=== PATIENT | male | born 1925 | race Caucasian/White ===

== ENCOUNTER 2017-02-14 09:29 | Day surgery (SDC) | payer MEDICARE, BC, MEDICAID ==
[~2017-02-14 09:29] MED LIST: ACIDOPHILUS-PE1 EAC3 PO; ANTIVERT25 MG PO; ATIVAN0.5 M1 PO; BANOPHEN25 M2 PO; BISCOLAX10 MG PR; CALCIUM CARBON500 M2 PO; CLARITIN10 M6 PO; COLCHICINE0.6 MG; CYMBALTA30 M1 PO; CYMBALTA60 M1 PO; DELTASONE10 MG PO; DILAUDID4 M1 PO; DURAGESIC1 EAC4 TOP; EXCEDRIN EXTRA1 EAC4 PO; HALOPERIDOL2 MG/1 ML PO; LORTAB 7.5/5001 TAB; MILK OF MAGNESIA PO; MOBIC15 M2 PO; MOVANTIK12.5 MG PO; MUPIROCIN15 G2 TP; NITROGLYCERIN0.4 M2 SL; OMEPRAZOLE20 M3 PO; PERIDEX118 ML SSP; POLYETHYLENE G255 G1 PO; PROTONIX40 MG; PROTONIX40 MG PO; SENNA8.6 M2 PO; TYLENOL325 M2 PO; ULORIC40 MG PO; VICOPROFEN PO
== END 2017-02-14 16:10 ==
LOC: SRG 09:29 → SHSB 09:30 → ORE 11:34 → SHSB 14:35
PROC: 0CDXXZ1 Extraction of Lower Tooth, Multiple, External Approach (ICD-10-PCS; principal; 2017-02-14)
PROC: 0CDWXZ1 Extraction of Upper Tooth, Multiple, External Approach (ICD-10-PCS; 2017-02-14)
DX: K08.89 Other specified disorders of teeth and supporting structures (principal); I25.2 Old myocardial infarction; I50.9 Heart failure, unspecified; I25.10 Atherosclerotic heart disease of native coronary artery without angina pectoris; G40.909 Epilepsy, unspecified, not intractable, without status epilepticus; F41.9 Anxiety disorder, unspecified; F32.9 Major depressive disorder, single episode, unspecified; H26.9 Unspecified cataract; G47.30 Sleep apnea, unspecified; K21.9 Gastro-esophageal reflux disease without esophagitis; F03.90 Unspecified dementia, unspecified severity, without behavioral disturbance, psychotic disturbance, mood disturbance, and anxiety; M10.9 Gout, unspecified; Z79.1 Long term (current) use of non-steroidal anti-inflammatories (NSAID); Z79.899 Other long term (current) drug therapy; Z88.1 Allergy status to other antibiotic agents; Z88.5 Allergy status to narcotic agent; Z88.8 Allergy status to other drugs, medicaments and biological substances; Z87.891 Personal history of nicotine dependence; Z86.73 Personal history of transient ischemic attack (TIA), and cerebral infarction without residual deficits; Z90.49 Acquired absence of other specified parts of digestive tract; Z90.89 Acquired absence of other organs; Z95.1 Presence of aortocoronary bypass graft; Z98.890 Other specified postprocedural states
CPT/HCPCS: J3010